=== PATIENT | male | born 1980 | race Caucasian/White ===

== ENCOUNTER 2017-06-16 18:02 | Emergency (ER) | payer OTHER ==
[~2017-06-16] VITALS: Ht 182.9 cm; Wt 97.0 kg
[2017-06-16 19:15] LABS: HEMATOCRIT 35.7 % (38.0-50.0); MCH 26.3 PG (29.0-34.0); MCHC 31.9 G/DL (30.0-36.0); MCV 82.3 FL (86-99); MEAN PLAT.VOLUME 9.5 uM^3 (9.0-12.4); PLATELET COUNT 271 K/uL (156-360); RBC DIS.WIDTH-CV 13.3 % (11.8-14.6); RBC DIS.WIDTH-SD 39.8 % (39-53); RED BLOOD COUNT 4.34 M/uL (4.00-5.50); WHITE BLOOD COUNT 5.6 K/uL (4.1-10.2)
[2017-06-16 19:25] LABS: CHLORIDE 101 mEq/L (99-109); POTASSIUM 4.4 mEq/L (3.7-5.4); SODIUM 142 mEq/L (136-147)
[2017-06-16 19:27] LABS: GLUCOSE 125 mg/dL (70-99)
[2017-06-16 19:28] LABS: ANION GAP 12 MEQ/L (2-14)
[2017-06-16 19:29] LABS: TOTAL BILIRUBIN 0.3 mg/dL (0.0-1.0)
[2017-06-16 19:30] LABS: ALKALINE PHOSPHATASE 110 IU/L (3-129); SERUM ETHYL ALCOHOL < 10 mg/dL
[2017-06-16 19:32] LABS: UREA NITROGEN (BUN) 15 mg/dL (9-23)
[2017-06-16 19:34] LABS: GFR ESTIMATE (CALCULATED) > 59 mL/min/
[2017-06-16 20:44] LABS: TROP-I INTERPRETATION NEGATIVE; TROPONIN-I < 0.01 ng/mL (0.0-0.30)
[2017-06-16 20:51] LABS: ADD MIUA? NO; BILIRUBIN NEGATIVE; BLOOD NEGATIVE; COLOR STRAW ((YELLOW)); GLUCOSE (STRIP) NEGATIVE; KETONES NEGATIVE; LEUKOCYTES NEGATIVE; NITRITE NEGATIVE; PROTEIN (STRIP) NEGATIVE; UCUL ADDED? NO; UROBILINOGEN 0.2 MG/DL (0.2-1.0)
[2017-06-16 21:20] LABS: COCAINE NEGATIVE (150 ng/mL); METHAMPHETAMINE NEGATIVE (500 ng/mL); PHENCYCLIDINE NEGATIVE (25 ng/mL); THC CANNABINOIDS NEGATIVE (50 ng/mL)
[2017-06-16 21:21] LABS: ADD MEDTOX COMMENT Y; AMPHETAMINE PRESUMPTIVE POSITIVE (500 ng/mL); BARBITURATES NEGATIVE (200 ng/mL); BENZODIAZEPINES NEGATIVE (150 ng/mL); INTERNAL CONTROLS VALID? YES; METHADONE NEGATIVE (200 ng/mL); OPIATES (MORPHINE) NEGATIVE (100 ng/mL); OXYCODONE NEGATIVE (100 ng/mL); PROPOXYPHENE NEGATIVE (300 ng/mL); TRICYCLIC ANTIDEPRESSANTS PRESUMPTIVE POSITIVE (300 ng/mL)
[2017-06-16 22:34] LABS: TROP-I INTERPRETATION NEGATIVE; TROPONIN-I < 0.01 ng/mL (0.0-0.30)
[2017-06-16] MEDS ORDERED: ZITHROMAX Z-PA250 MG PO (23:49)
[2017-06-16 23:54] VITALS: BP 121/72
== END 2017-06-16 23:54 | disposition home or self-care (01) ==
LOC: EME 18:02
PROVIDERS: Physician Assistant
DX: R55 Syncope and collapse (principal); F41.9 Anxiety disorder, unspecified; F32.9 Major depressive disorder, single episode, unspecified; Z87.891 Personal history of nicotine dependence; Z88.0 Allergy status to penicillin
CPT/HCPCS: 70450; 71020; 80053; 81003; 83880; 84484; 84999; 85027; 85379; 87502; 93005; 99281; 99284; G0480

== ENCOUNTER 2017-08-08 00:37 | Emergency (ER) | payer SELFPAY ==
[~2017-08-08] VITALS: Ht 182.9 cm; Wt 86.2 kg
[~2017-08-08 00:37] MED LIST: ZITHROMAX Z-PA250 MG PO
[2017-08-08 02:39] LABS: HEMATOCRIT 35.3 % (38.0-50.0); HEMOGLOBIN 11.4 G/DL (12.5-16.6); MCH 26.8 PG (29.0-34.0); MCHC 32.3 G/DL (30.0-36.0); MCV 83.1 FL (86-99); PLATELET COUNT 242 K/uL (156-360); RBC DIS.WIDTH-CV 13.5 % (11.8-14.6); RBC DIS.WIDTH-SD 40.6 % (39-53); RED BLOOD COUNT 4.25 M/uL (4.00-5.50); WHITE BLOOD COUNT 5.3 K/uL (4.1-10.2)
[2017-08-08 02:46] LABS: ALBUMIN 3.5 g/dL (3.2-4.8); CHLORIDE 107 mEq/L (99-109); SODIUM 138 mEq/L (136-147)
[2017-08-08 02:49] LABS: GLUCOSE 114 mg/dL (70-99); TOTAL PROTEIN 6.5 g/dL (6.4-8.3)
[2017-08-08 02:51] LABS: TOTAL BILIRUBIN 0.1 mg/dL (0.0-1.0)
[2017-08-08 02:52] LABS: SERUM ETHYL ALCOHOL < 10 mg/dL
[2017-08-08 02:53] LABS: ALKALINE PHOSPHATASE 89 IU/L (3-129); CREATININE 0.9 mg/dL (0.6-1.3); GFR ESTIMATE (CALCULATED) > 59 mL/min/ (58.99-99999)
[2017-08-08 02:54] LABS: AST (GOT) 18 IU/L (2-34); UREA NITROGEN (BUN) 14 mg/dL (9-23)
[2017-08-08 02:56] LABS: ACETAMINOPHEN (TYLENOL) < 10 mcg/mL (10-30); ALT (GPT) 26 IU/L (3-49); SALICYLATE < 5.0 MG/DL (15-30)
[2017-08-08 08:59] VITALS: BP 97/70
== END 2017-08-08 08:59 | disposition home or self-care (01) ==
LOC: EME 00:37
PROVIDERS: Emergency Medicine
DX: T42.4X2A Poisoning by benzodiazepines, intentional self-harm, initial encounter (principal); F32.9 Major depressive disorder, single episode, unspecified; F41.9 Anxiety disorder, unspecified; G89.29 Other chronic pain; Z79.891 Long term (current) use of opiate analgesic; Z87.891 Personal history of nicotine dependence; Z88.0 Allergy status to penicillin
CPT/HCPCS: 80053; 85027; 90837; 93005; 99281; 99285; G0480; J7030

== ENCOUNTER 2018-02-26 05:16 | Emergency (ER) | payer BC ==
[~2018-02-26] VITALS: Ht 182.9 cm; Wt 83.3 kg
[2018-02-26 05:35] LABS: HEMOGLOBIN 12.5 G/DL (12.5-16.6); MCH 28.6 PG (29.0-34.0); MCHC 34.7 G/DL (30.0-36.0); MCV 82.4 FL (86-99); PLATELET COUNT 275 K/uL (156-360); RBC DIS.WIDTH-CV 12.9 % (11.8-14.6); RBC DIS.WIDTH-SD 38.5 % (39-53); RED BLOOD COUNT 4.37 M/uL (4.00-5.50); WHITE BLOOD COUNT 6.7 K/uL (4.1-10.2)
[2018-02-26 05:46] LABS: CHLORIDE 102 mEq/L (99-109); POTASSIUM 4.2 mEq/L (3.7-5.4); SODIUM 140 mEq/L (136-147)
[2018-02-26 05:48] LABS: GLUCOSE 91 mg/dL (70-99)
[2018-02-26 05:52] LABS: GFR ESTIMATE (CALCULATED) > 59 mL/min/ (58.99-99999); UREA NITROGEN (BUN) 13 mg/dL (9-23)
[2018-02-26 05:56] LABS: TROP-I INTERPRETATION NEGATIVE; TROPONIN-I < 0.01 ng/mL (0.0-0.30)
[2018-02-26 08:10] VITALS: BP 136/99
[2018-02-26 08:26] LABS: SOURCE URINE
[2018-02-26 12:59] LABS: TREPONEMA ANTIBODY NEGATIVE (NEGATIVE)
[2018-02-27 13:25] LABS: CHLAMYDIA TRACHOMATIS NEGATIVE; NEISSERIA GONORRHOEAE NEGATIVE
== END 2018-02-26 08:11 | disposition left against medical advice (07) ==
LOC: EME → EDBD 05:16 → EME 05:16
PROVIDERS: Emergency Medicine
DX: R07.9 Chest pain, unspecified (principal); F41.0 Panic disorder [episodic paroxysmal anxiety]; R36.9 Urethral discharge, unspecified; R06.02 Shortness of breath; R11.2 Nausea with vomiting, unspecified; Z63.0 Problems in relationship with spouse or partner; Z11.3 Encounter for screening for infections with a predominantly sexual mode of transmission; Z88.0 Allergy status to penicillin; F17.200 Nicotine dependence, unspecified, uncomplicated; Z53.20 Procedure and treatment not carried out because of patient's decision for unspecified reasons
CPT/HCPCS: 71046; 80048; 84484; 85027; 86780; 87491; 87591; 93005; 99281; 99284

== ENCOUNTER 2018-03-22 04:05 | Inpatient (IN) | payer BC ==
[2018-03-22] VITALS (15 sets, daily range): BP systolic 111–162; BP diastolic 70–116
[~2018-03-22] VITALS: Ht 182.9 cm; Wt 85.5 kg
[2018-03-22 05:01] LABS: CHLORIDE 105 mEq/L (99-109); POTASSIUM 3.9 mEq/L (3.7-5.4); SODIUM 143 mEq/L (136-147)
[2018-03-22 05:03] LABS: GLUCOSE 85 mg/dL (70-99)
[2018-03-22 05:06] LABS: SERUM ETHYL ALCOHOL 86 mg/dL
[2018-03-22 05:07] LABS: GFR ESTIMATE (CALCULATED) > 59 mL/min/ (58.99-99999)
[2018-03-22 05:08] LABS: UREA NITROGEN (BUN) 16 mg/dL (9-23)
[2018-03-22 05:11] LABS: HEMATOCRIT 33.1 % (38.0-50.0); HEMOGLOBIN 11.2 G/DL (12.5-16.6); MCH 28.7 PG (29.0-34.0); MCHC 33.8 G/DL (30.0-36.0); MCV 84.9 FL (86-99); PLATELET COUNT 206 K/uL (156-360); RBC DIS.WIDTH-CV 13.2 % (11.8-14.6); RBC DIS.WIDTH-SD 40.1 % (39-53); WHITE BLOOD COUNT 5.7 K/uL (4.1-10.2)
[2018-03-22 05:23] LABS: ACETAMINOPHEN (TYLENOL) < 10 mcg/mL (10-30); SALICYLATE < 5.0 MG/DL (15-30)
[2018-03-22 05:30] LABS: BASE EXCESS 5.4 mEq/L (-3 to +3); BICARBONATE 30.5 mEq/L (22-26); CARBOXY HGB 2.8 % (0-5); COMMENTS - BLOOD GASES C+A+; DEVICE ROOM AIR; METHEMOGLOBIN 1.2 % (0-1.5); O2 SATURATION (CALCULATED) 99.1 % (95-99); PCO2 46 mm Hg (35-45); PO2 93 mm Hg (80-100); SITE RB; pH 7.43 (7.35-7.45)
[2018-03-22 06:09] LABS: CARBON DIOXIDE (BICARBONATE) 26.2 MEQ/L (20-31)
[2018-03-22 07:38] LABS: INTER. NORMALIZED RATIO 1.1
[2018-03-22 07:41] LABS: PTT 30.7 SEC (25-37)
[2018-03-22 08:02] LABS: AMPHETAMINE PRESUMPTIVE POSITIVE (500 ng/mL); BARBITURATES NEGATIVE (200 ng/mL); BENZODIAZEPINES NEGATIVE (150 ng/mL); BUPRENORPHINE PRESUMPTIVE POSITIVE (10 ng/mL); COCAINE NEGATIVE (150 ng/mL); METHADONE NEGATIVE (200 ng/mL); METHAMPHETAMINE NEGATIVE (500 ng/mL); OPIATES (MORPHINE) NEGATIVE (100 ng/mL); OXYCODONE NEGATIVE (100 ng/mL); PHENCYCLIDINE NEGATIVE (25 ng/mL); PROPOXYPHENE NEGATIVE (300 ng/mL); THC CANNABINOIDS NEGATIVE (50 ng/mL); TRICYCLIC ANTIDEPRESSANTS PRESUMPTIVE POSITIVE (300 ng/mL)
[2018-03-22 08:56] LABS: CREATINE KINASE 387 IU/L (1-294)
[2018-03-22 09:32] LABS: COMMENTS - BLOOD GASES A+C+; DEVICE VENT; FI02 30 %; MECHANICAL RATE 16 resp/min; MODE ACVC; SITE RR; TIDAL VOLUME 500 ML; TOTAL RESP RATE 16 resp/min
[2018-03-22 09:33] LABS: BASE EXCESS 7.7 mEq/L (-3 to +3); CARBOXY HGB 1.8 % (0-5); METHEMOGLOBIN 0.9 % (0-1.5); O2 SATURATION (CALCULATED) 96.5 % (95-99); PCO2 43 mm Hg (35-45); PO2 114 mm Hg (80-100); pH 7.48 (7.35-7.45)
[2018-03-22 10:32] LABS: TRIGLYCERIDES 152 MG/DL (Normal: <150)
[2018-03-22 13:36] LABS: CHLORIDE 105 MEQ/L (99-109); CREATININE 0.7 MG/DL (0.6-1.3); GFR ESTIMATE (CALCULATED) > 59 mL/min/ (58.99-99999); SODIUM 146 MEQ/L (136-147); UREA NITROGEN (BUN) 9 mg/dL (9-23)
[2018-03-22 13:41] LABS: GLUCOSE 108 mg/dL (70-99); POTASSIUM 2.9 MEQ/L (3.7-5.4)
[2018-03-22 18:26] LABS: CHLORIDE 105 mEq/L (99-109); POTASSIUM 2.8 mEq/L (3.7-5.4); SODIUM 146 mEq/L (136-147)
[2018-03-22 18:28] LABS: GLUCOSE 95 mg/dL (70-99)
[2018-03-22 18:32] LABS: CREATININE 0.8 mg/dL (0.6-1.3); GFR ESTIMATE (CALCULATED) > 59 mL/min/ (58.99-99999)
[2018-03-22 18:33] LABS: UREA NITROGEN (BUN) 8 mg/dL (9-23)
[2018-03-23] VITALS (20 sets, daily range): BP systolic 107–154; BP diastolic 59–106
[2018-03-23 00:43] LABS: CHLORIDE 106 mEq/L (99-109); SODIUM 143 mEq/L (136-147)
[2018-03-23 00:45] LABS: GLUCOSE 124 mg/dL (70-99)
[2018-03-23 00:49] LABS: CREATININE 0.8 mg/dL (0.6-1.3); GFR ESTIMATE (CALCULATED) > 59 mL/min/ (58.99-99999)
[2018-03-23 00:50] LABS: UREA NITROGEN (BUN) 7 mg/dL (9-23)
[2018-03-23 00:55] LABS: POTASSIUM 3.7 mEq/L (3.7-5.4)
[2018-03-23 05:35] LABS: HEMATOCRIT 32.6 % (38.0-50.0); HEMOGLOBIN 10.7 G/DL (12.5-16.6); MCH 27.9 PG (29.0-34.0); MCHC 32.8 G/DL (30.0-36.0); MCV 85.1 FL (86-99); PLATELET COUNT 186 K/uL (156-360); RBC DIS.WIDTH-CV 13.4 % (11.8-14.6); RBC DIS.WIDTH-SD 41.7 % (39-53); RED BLOOD COUNT 3.83 M/uL (4.00-5.50); WHITE BLOOD COUNT 6.3 K/uL (4.1-10.2)
[2018-03-23 06:18] LABS: CHLORIDE 104 MEQ/L (99-109); CREATINE KINASE 126 IU/L (1-294); CREATININE 0.7 MG/DL (0.6-1.3); GFR ESTIMATE (CALCULATED) > 59 mL/min/ (58.99-99999); GLUCOSE 115 mg/dL (70-99); POTASSIUM 3.6 MEQ/L (3.7-5.4); SODIUM 143 MEQ/L (136-147); UREA NITROGEN (BUN) 6 mg/dL (9-23)
[2018-03-24] VITALS (10 sets, daily range): BP systolic 98–151; BP diastolic 60–106
[2018-03-24 05:40] LABS: CREATINE KINASE 65 IU/L (1-294)
[2018-03-24 09:51] LABS: CHLORIDE 105 MEQ/L (99-109); CREATININE 0.8 MG/DL (0.6-1.3); GFR ESTIMATE (CALCULATED) > 59 mL/min/ (58.99-99999); GLUCOSE 115 mg/dL (70-99); MAGNESIUM 1.8 mg/dl (1.3-2.7); PHOSPHORUS 3.9 mg/dL (2.5-4.9); POTASSIUM 3.5 MEQ/L (3.7-5.4); SODIUM 141 MEQ/L (136-147); UREA NITROGEN (BUN) 7 mg/dL (9-23)
[2018-03-24 10:27] LABS: BASOPHIL (%) 0.4 % (0-1); EOSINOPHIL (%) 1.9 % (0-5); EOSINOPHIL COUNT 0.1 K/uL (0-0.3); HEMATOCRIT 33.8 % (38.0-50.0); HEMOGLOBIN 10.7 G/DL (12.5-16.6); IMMATURE GRANULOCYTE (%) 0.4 % (0.0-0.7); LYMPHOCYTE (%) 24.6 % (15-42); LYMPHOCYTE COUNT 1.4 K/uL (1.0-2.8); MCH 28.1 PG (29.0-34.0); MCHC 31.7 G/DL (30.0-36.0); MCV 88.7 FL (86-99); MONOCYTE (%) 9.6 % (3-12); MONOCYTE COUNT 0.6 K/uL (0-0.8); NEUTROPHIL (%) 63.1 % (45-76); NEUTROPHIL COUNT 3.6 K/uL (1.8-6.4); PLATELET COUNT 177 K/uL (156-360); RBC DIS.WIDTH-CV 13.3 % (11.8-14.6); RBC DIS.WIDTH-SD 43.7 % (39-53); RED BLOOD COUNT 3.81 M/uL (4.00-5.50); WHITE BLOOD COUNT 5.7 K/uL (4.1-10.2)
[2018-03-25 03:44] VITALS: BP 132/85
[2018-03-25 07:30] VITALS: BP 125/69
[2018-03-25 09:21] LABS: BASOPHIL (%) 0.4 % (0-1); EOSINOPHIL (%) 3.5 % (0-5); EOSINOPHIL COUNT 0.2 K/uL (0-0.3); HEMATOCRIT 36.9 % (38.0-50.0); HEMOGLOBIN 11.5 G/DL (12.5-16.6); IMMATURE GRANULOCYTE (%) 0.8 % (0.0-0.7); LYMPHOCYTE (%) 30.5 % (15-42); LYMPHOCYTE COUNT 1.6 K/uL (1.0-2.8); MCH 27.3 PG (29.0-34.0); MCHC 31.2 G/DL (30.0-36.0); MCV 87.4 FL (86-99); MONOCYTE (%) 8.8 % (3-12); MONOCYTE COUNT 0.5 K/uL (0-0.8); NEUTROPHIL COUNT 2.9 K/uL (1.8-6.4); PLATELET COUNT 226 K/uL (156-360); RBC DIS.WIDTH-CV 12.9 % (11.8-14.6); RBC DIS.WIDTH-SD 41.1 % (39-53); RED BLOOD COUNT 4.22 M/uL (4.00-5.50); WHITE BLOOD COUNT 5.2 K/uL (4.1-10.2)
[2018-03-25 09:44] LABS: CHLORIDE 105 MEQ/L (99-109); CREATININE 0.9 MG/DL (0.6-1.3); GFR ESTIMATE (CALCULATED) > 59 mL/min/ (58.99-99999); GLUCOSE 103 mg/dL (70-99); POTASSIUM 4.1 MEQ/L (3.7-5.4); SODIUM 141 MEQ/L (136-147); UREA NITROGEN (BUN) 9 mg/dL (9-23)
[2018-03-25] MEDS ORDERED: DULOXETINE HCL30 MG PO (11:30)
[2018-03-25 15:44] VITALS: BP 152/95
== END 2018-03-25 18:11 | DRG 918 ==
LOC: EME → EDBD 04:05 → 4WEST 06:32 → 5SOUTH 06:32 → EDOF 06:32 → ENRESERV 06:33 → 4WEST 07:02 → ENRESERV 03-24 12:20 → 5SOUTH 03-24 14:15 → ENPENDDIS 03-25 12:26 → 5SOUTH 03-25 18:11
PROVIDERS: Emergency Medicine; Physician Assistant; Specialist; Surgery
DX: T43.012A Poisoning by tricyclic antidepressants, intentional self-harm, initial encounter (principal); Z91.5 Personal history of self-harm; F43.23 Adjustment disorder with mixed anxiety and depressed mood; F11.20 Opioid dependence, uncomplicated; G89.29 Other chronic pain; M54.9 Dorsalgia, unspecified; E87.6 Hypokalemia; R31.9 Hematuria, unspecified; F17.200 Nicotine dependence, unspecified, uncomplicated
CPT/HCPCS: 36600; 70450; 71045; 80048; 80048 91; 82550; 82803; 83605; 83735; 84100; 84478; 84999; 85025; 85027; 85610; 85730; 87070; 87205; 87641; 87651 90; 93005; 94002; 94003; 94640; 94799; 99281; 99285; G0480; J1644; J2704; J3480; J7030; J7050; J7070; S0028

== ENCOUNTER 2018-03-25 17:35 | Inpatient (IN) | payer BC ==
[~2018-03-25] VITALS: Ht 182.9 cm; Wt 81.9 kg
[~2018-03-25 17:35] MED LIST changes: +DULOXETINE HCL30 MG PO
[2018-03-25 18:36] VITALS: BP 137/96
[2018-03-26 07:49] VITALS: BP 135/98
[2018-03-26 16:55] VITALS: BP 154/106
[2018-03-27 07:28] VITALS: BP 141/96
[2018-03-27 16:39] VITALS: BP 127/74
[2018-03-27 18:56] VITALS: BP 135/79
[2018-03-28 07:41] VITALS: BP 106/59
[2018-03-28] MEDS ORDERED: BUPRENORPHIN-N1 EACH SL (09:05)
[2018-03-28] MEDS ORDERED: DULOXETINE HCL30 MG PO (09:05)
[2018-03-28] MEDS ORDERED: INDERAL10 MG PO (09:05)
[2018-03-28] MEDS ORDERED: TRAZODONE HCL50 MG PO (09:05)
[2018-03-28 16:15] VITALS: BP 107/57
== END 2018-03-28 17:40 | disposition home or self-care (01) | DRG 881 ==
LOC: 1WEST 17:35 → ENRESERV 17:35 → 1WEST 18:15
DX: F32.9 Major depressive disorder, single episode, unspecified (principal); F11.20 Opioid dependence, uncomplicated; F40.10 Social phobia, unspecified; Z79.899 Other long term (current) drug therapy
CPT/HCPCS: 97150 GO; 97165 GO; J0574; Q0177